=== PATIENT | male | born 1955 | race Caucasian/White ===

== ENCOUNTER 2017-08-06 08:33 | Outpatient (CLI) | payer OTHER ==
[2012-11-06 10:07] VITALS: BP 138/91
[2017-08-06 08:49] LABS: BASOPHILS % 0.8 (0.0-1.5); EOSINOPHILS % 1.7 % (0.0-6.8); MEAN CORPUSCULAR HEMOGLOBIN 31.6 pg (28.0-34.0); MEAN CORPUSCULAR VOLUME 97.6 fl (80.0-100.0); MONOCYTES % 6.3 % (0.0-11.0); NEUTROPHILS # 4.3 # k/uL (1.4-7.7)
[2017-08-06 09:17] LABS: eGFR (African) > 60; eGFR (Non-African) > 60
== END 2017-08-06 08:34 ==
LOC: LAB 08:33
PROVIDERS: ATTEND Physician Assistant
DX: Z00.00 Encounter for general adult medical examination without abnormal findings (principal)
CPT/HCPCS: 36415; 80053; 80061; 84443; 85025

== ENCOUNTER 2017-12-18 13:23 | Outpatient (CLI) | payer OTHER ==
[2012-11-06 10:07] VITALS: BP 138/91
== END 2017-12-18 13:25 ==
LOC: CARD 13:23
PROVIDERS: ATTEND Internal Medicine Cardiovascular Disease
DX: I77.810 Thoracic aortic ectasia (principal); Z86.79 Personal history of other diseases of the circulatory system; I10 Essential (primary) hypertension
CPT/HCPCS: 99213

== ENCOUNTER 2018-03-07 10:56 | Outpatient (CLI) | payer OTHER ==
[2012-11-06 10:07] VITALS: BP 138/91
--- NOTE | 2018-03-07 18:28 | Diagnostic Imaging Report ---
JEIMY MARTINEZ [facility] [address] [facility].[address] [id number] Report Submission Date: Mar 07, 2018 11:50:30 AM CDT Patient Study Name: COREY SCHULTZ Date: Mar 07, 2018 11:06:55 AM CDT Modality Type: DX Gender: M Description: SPINE : 53 Institution: [facility] Physician: JEIMY MARTINEZ Examination: Cervical spine History: C-SPINE, NECK PAIN AT BASE OF SKULL FOR ABOUT 8 MONTHS, NO KNOWN INJURY (Hx) Comparison exams: None available Findings: 4 views of the cervical spine demonstrate normal height and alignment. No anterior compression. No abnormal listhesis. Facet degenerative changes. No odontoid abnormality. No prevertebral abnormality Impression: Degenerative changes. No acute appearing osseous abnormality. If patient is experiencing neurologic symptoms, consider obtaining MRI to further evaluate. Electronically signed on Mar 07, 2018 11:50:30 AM CDT by: Kyler JASON
== END 2018-03-07 11:00 ==
LOC: LAB 10:56
PROVIDERS: ATTEND Family Medicine
DX: K63.5 Polyp of colon (principal); R53.82 Chronic fatigue, unspecified; M54.2 Cervicalgia
CPT/HCPCS: 36415; 72040; 86618; 86666; 86757